=== PATIENT | male | born 1960 | race Caucasian/White ===

== ENCOUNTER 2021-01-10 07:03 | Emergency (ER) | payer SELFPAY ==
[~2021-01-10] VITALS: Ht 172.7 cm; Wt 63.5 kg
[2021-01-10] MEDS ORDERED: ACETAMINOPHEN ES 500 MG TABLET PO ONE (07:30)
[2021-01-10] MEDS ORDERED: ACETAMINOPHEN ES 500 MG TABLET ONE (07:39)
--- NOTE | 2021-01-10 10:26 | NUR ---
PT PADMAJA FROM THE STREETS C/O LOWER BACK PAIN, STATES HE WAS WALKING UP A HILL AND FELL BACKWARDS. DENIES HEAD INJURY. STABLE VITALS. SEEN BY CULLEN SINGER.
--- NOTE | 2021-01-10 10:32 | NUR ---
MARQUITA ARMENTA AT BEDSIDE TALKING TO PATIENT.
--- NOTE | 2021-01-10 11:10 | NUR ---
PT PROVIDED WITH A MEAL.
--- NOTE | 2021-01-10 11:17 | NUR ---
"Social Service Consult: social services assistant consult requested for homelessness. Patient is a 60-year-old, male. SW met with the patient at his hospital bed in the emergency department. Patient was alert and oriented x4. Patient was resting. Per patients chart, patient was brought in by ambulance from the streets on 01/10/21 for lower back pain. Patient stated that he is currently homeless and has been homeless since November of this year. Patient stated that he is independent with his ADLs. SW asked patient about his current source of income and patient stated he receives Social Security Income. 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 SW assessed patients history of mental illness and patient denies history of mental illness. Patient denies visual or auditory hallucinations. Patient denies any current suicidal or homicidal ideation. SW discussed homeless resources with the patient. Patient accepted the resources and thanked SW. SW asked patient to sign the homeless waiver. Patient signed the homeless waiver and SW filed the waiver in the patients chart. SW discussed discharge plan with the patient and patient stated he wants to be discharged to the streets. Patient stated that he takes the bus for transportation. PLAN: Patient plans to be discharged to the street. No further SS intervention at this time, however SW will remain available as needed. Year-round shelters: [facility] [address] [place] [address] ; [facility] [place] [address] [place] [address]; [facility] [id number] [facility] [address] SPA 4 | [facility] [place] Provider: First to Serve Address: [address], [address] # of Beds: 48 Population Served: [facility] Provider: First to Serve Address: [address] [facility], [address] # of Beds: 73 Population Served: [facility] 6 | [facility] Provider: Home at Last Address: [address] [facility], [address] # of Beds: 63 Population Served: [place] SPA 3 | [facility] Provider: [place] Address: [address] [facility] [place], [address] # of Beds: 75 Population Served: [place] SPA 8 | [facility] Provider: [place] Address: [address] [facility], [address] # of Beds: 80 Population Served: [place] SPA 1 | [facility] Provider: Volunte[place] sun[place] Address: [address] [place] [address], [address] # of Beds: 85 Population Served: [facility] 2 | [facility] Provider: Donna culp [facility] Address: Confidential (please call for location) # of Beds: 52 Population Served: [facility] 4 | [facility] Provider: [facility] Address: [address] [place] [address], [facility] # of Beds: 49 Population Served: [facility] Provider: First To Serve Address: [address] [place] [address], [facility] # of Beds: 27 Population Served: Natalia Hygiene: [facility]: [address] [facility] ; [facility] [address] [facility] ; [facility] [address] [facility] . Food Resources: [place] [facility]- [address] [facility]; Meet Each Need with [facility] ([facility]) [address] [facility]; [facility] [address] [facility]; [facility] [address] [facility]. Mental Health resources provided: [facility] [address] [place] [address] ; [facility] [place] [address] [facility] [address], [place], [place] [id number] ; [facility] [address] [place], [place] [id number] ; [facility] [address] [place], [place] [phone] Healthcare Clinics: [facility] [address] [facility], [address] [place]. [place] ; [facility] [address] [facility] [address] [place] [address]; [facility] [address] [facility]. [place] [phone] Counseling--Outpatient [facility] [address] [facility], [address] [place], [place] [phone] (Specializes in in-depth psychotherapy for emotional distress: anxiety, depression, interpersonal conflicts, life transitions, childhood abuse) PSYCHIATRIC OUTPATIENT SERVICES [facility] Partial Hospitalization and Intensive Outpatient Program (Managed Care and [place] Only) [address] [facility]. [facility] [address] [facility] Partial Hospitalization and Outpatient Program [address] [place] [facility]. [address] [place], [place] [id number] [facility] Partial Hospitalization and Outpatient Program [address] [place] [facility] [place], [place] [id number] [facility] [address] [facility]. [address] [place], [place] [address] [facility] Partial Hospitalization and Outpatient Program [address] [place], [place] [phone] "
--- NOTE | 2021-01-10 11:50 | NUR ---
PT WAS PROVIDED WITH CLOTHES.
[2021-01-10 12:01] VITALS: BP 154/79
--- NOTE | 2021-01-10 12:01 | NUR ---
Patient discharged to home in stable condition. Written and verbal after care instructions given. Patient verbalizes understanding of instruction. Pt ambulatory with a steady gait
== END 2021-01-10 12:02 | disposition home or self-care (01) ==
LOC: ER 07:03
DX: M54.6 Pain in thoracic spine (principal); I10 Essential (primary) hypertension; Z60.2 Problems related to living alone; W19.XXXA Unspecified fall, initial encounter; Y93.39 Activity, other involving climbing, rappelling and jumping off; Y92.89 Other specified places as the place of occurrence of the external cause; Y99.8 Other external cause status
CPT/HCPCS: 72070-TC